=== PATIENT | male | born 1990 | race African-American/Black ===

== ENCOUNTER 2018-05-26 19:13 | Emergency (ER) | payer SELFPAY ==
[~2018-05-26] VITALS: Ht 182.9 cm; Wt 77.1 kg
[2018-05-26 19:14] VITALS: BP 138/96
[2018-05-26] MEDS ORDERED: Methocarbamol 500mg tab ORAL ONE (19:15)
[2018-05-26] MEDS ORDERED: Ketorolac 30mg Inj IM ONE (19:15)
[2018-05-26] MEDS ORDERED: LIDOCAINE700 M1 TP (19:41)
[2018-05-26] MEDS ORDERED: IBUPROFEN600 MG ORAL (19:41)
[2018-05-26] MEDS ORDERED: ROBAXIN500 MG PO (19:41)
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
[2018-05-26 20:27] VITALS: BP 138/96
== END 2018-05-26 21:25 | disposition home or self-care (01) ==
LOC: EDBD 19:13 → EMR 19:44
DX: M54.2 Cervicalgia (principal); M54.9 Dorsalgia, unspecified; M25.519 Pain in unspecified shoulder; V43.62XA Car passenger injured in collision with other type car in traffic accident, initial encounter; Y92.488 Other paved roadways as the place of occurrence of the external cause; F17.200 Nicotine dependence, unspecified, uncomplicated
CPT/HCPCS: 99283